=== PATIENT | male | born 1990 | race Caucasian/White ===

== ENCOUNTER 2017-02-14 04:49 | Emergency (ER) | payer OTHER ==
[~2017-02-14] VITALS: Ht 175.3 cm; Wt 84.5 kg
[2017-02-14 04:51] VITALS: BP 120/88; PULSE 89; RESP 16; O2SAT 98
[2017-02-14 05:18] LABS: BASOPHILS % (AUTO) 0.6 % (0-3); EOSINOPHILS % (AUTO) 1.4 % (0-5); MONOCYTES % (AUTO) 8.9 % (4-12); Mean Corpuscular Hemoglobin 29.3 pg (27.0-35.0); Mean Corpuscular Volume 84.5 fL (81-100); NEUTROPHILS % (AUTO) 67.1 % (40-74); Platelet Count 379 bil/L (150-400)
[2017-02-14] MEDS ORDERED: Ondansetron 2 mg/mL 2 mL Inj IVPUSH ONE (05:30)
[2017-02-14] MEDS ORDERED: Famotidine Inj 20 MG in IV Premix 1 EACH IV ONE (05:30)
--- NOTE | 2017-02-14 06:27 | ED.REPORT ---
HPI-Abd Pain M Under 40 Date of Service Feb 14, 2017 ED Provider: Eladio Mares MD Patient is an otherwise healthy 26 year old male who presents to the ED complaining of nausea and vomiting onset 6 days ago. His last episode of vomiting was 0230 this morning and he has been able to keep fluids down. Associated symptoms include diarrhea (every 2-3 hours) and sharp, cramping abdominal pain. He denies fever, chills, hematemesis, hematochezia, or any other symptoms. He has not taken medication for his symptoms. 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 He has a 12 year old sister at home and does not have contact with children in diapers. No known sick contacts besides the aforementioned. He does not have a PCP. Nursing Notes Stated Complaint: DIARRHEA/VOMITING Chief Complaint: Male Abdominal Pain Nursing Notes Reviewed: Yes Allergies: Uncoded Allergies: MEGHA (Allergy, Intermediate, 02/14/17) Scheduled Ondansetron ODT (Ondansetron ODT) 4 Mg Tab.rapdis 4 MG PO TID General Time Seen by MD: 05:29 Chief Complaint Vomiting moderate Hx Obtained From: Patient Arrived By: Walk-in Sudden in Onset?: Yes Onset Occurred: 6 days ago Symptom Duration: Since onset Past Medical History Past Medical History Denies Past Surgical History endoscopy, colonoscopy Smoking History Unknown if Ever Smoker Ambulatory Status Independent Review of Systems Constitutional: Denies: Chills, Fever GI: Reports: Diarrhea, Nausea, Vomiting, Denies: Hematemesis, Hematochezia Complete sys rev & neg: except as marked. Physical Exam Initial Vital Signs Vital Signs (First) Date Time Temp Pulse Resp B/P Pulse Ox O2 Delivery O2 Flow Rate FiO2 02/14/17 04:51 36.8 89 16 120/88 98 Room Air Initial VS: Reviewed, Vital signs normal Head / Eyes: Atraumatic, Normocephalic Neck: Full range of motion Skin: Warm, Dry Neurologic: Alert, Oriented, Nonfocal Psychiatric: Mood/affect normal, Behavior normal, Normal thought content General/Constitutional: Awake, Alert, No acute distress Respiratory / Chest: Breath sounds NL, Breath sounds = bilat, No respiratory distress Cardiovascular: Heart rate NL, Regular rhythm, Heart sounds NL Abdomen: Atraumatic, Soft, Non-tender Hyperactive bowel sounds Back: Atraumatic Interpretation & Diagnostics Lab Results Interpretation Result Diagram: 02/14/17 0505 02/14/17 0505 Test 02/14/17 05:05 02/14/17 06:20 White Blood Count 8.6th/mm3 (3.8-10.1) Red Blood Count 5.43mil/mm3 (4.40-5.80) Hemoglobin 15.9g/dL (13.8-17.2) Hematocrit 45.9% (41.0-50.0) Mean Corpuscular Volume 84.5fL (81-100) Mean Corpuscular Hemoglobin 29.3pg (27.0-35.0) Mean Corpuscular Hemoglobin Concent 34.6% (32.0-37.0) Red Cell Distribution Width 12.9% (12.3-15.4) Platelet Count 379bil/L (150-400) Neutrophils (%) (Auto) 67.1% (40-74) Lymphocytes (%) (Auto) 21.7% (14-46) Monocytes (%) (Auto) 8.9% (4-12) Eosinophils (%) (Auto) 1.4% (0-5) Basophils (%) (Auto) 0.6% (0-3) Sodium Level 137mEq/L (134-144) Potassium Level 3.7mEq/L (3.5-5.2) Chloride Level 100mEq/L (97-108) Carbon Dioxide Level 19mmol/L (18-29) Blood Urea Nitrogen 17mg/dL (6-20) Creatinine 1.05mg/dL (0.76-1.27) Estimat Glomerular Filtration Rate 90mL/min (>59) Glucose Level 101mg/dL (60-99) Calcium Level 9.4mg/dL (8.5-10.1) Magnesium Level 2.0mg/dL (1.6-2.6) Total Bilirubin 0.3mg/dL (0.0-1.2) Aspartate Amino Transf (AST/SGOT) 41U/L (0-50) Alanine Aminotransferase (ALT/SGPT) 54U/L (0-44) Alkaline Phosphatase 76U/L (25-150) Total Protein 8.7g/dL (6.4-8.4) Albumin 5.0g/dL (3.4-5.0) Lipase 19U/L (13-60) Hold Ann Top Tube Received (Received) Hold Urine Received (Received) Re-Eval/Medical Decision Re-Evaluation/Progress : Time of Eval: 07:48 )( Re-Eval Abdomen: Soft Re-Evaluation/Progress Note: Discussed plan for discharge. Patient understands and agrees with plan. All questions addressed at this time. Patient advised to not work until symptoms resolve. Counseled Regarding: Diagnosis, Need for follow-up, When/why to return to ED Patient Discharge & Departure Primary Impression: Nausea and vomiting Vomiting type: unspecified Vomiting Intractability: unspecified Qualified Code: R11.2 - Nausea with vomiting, unspecified Additional Impression: Diarrhea Diarrhea type: unspecified type Qualified Code: R19.7 - Diarrhea, unspecified Disposition: Home Discharge Condition All VS Reviewed: Yes Condition: Stable Patient Instructions: Gastroenteritis (ED) Additional Instructions: Emergency department evaluation today included Ambien, examination and labs. We have sent stool studies to further evaluate diarrhea, you will be called if any of these results require treatment. Get adequate fluids including some that contain electrolyte replacement. Ondansetron as needed for nausea and vomiting, pickup Imodium [id number] and use as directed for diarrhea. We expect that you will be better in the next couple of days. Call the [facility] for a follow-up appointment and to establish primary care. Return emergency department if symptoms are not improving within 3 days, for fevers, increased abdominal pain, uncontrolled vomiting or bloody diarrhea. Referrals: NOPCP (PCP) Scribe Attestation Portions of this note were transcribed by Mery Zamudio. I, Dr. Mares personally performed the history, physical exam and medical decision-making; I reviewed and confirmed the accuracy of the information in the transcribed note. Signed by: Mery Zamudio 02/14/17, 0754 Eladio Mares MD Feb 14, 2017 06:27 MERY ZAMUDIO Feb 14, 2017 07:49
[2017-02-14] MEDS ORDERED: ONDA4TAB12 PO (07:55)
[2017-02-14 08:20] VITALS: BP 109/71; PULSE 57; RESP 18; O2SAT 99
[2017-02-14 08:27] VITALS: BP 109/71; PULSE 57; RESP 18; O2SAT 99
== END 2017-02-14 08:28 | disposition home or self-care (01) ==
LOC: SED 04:49
DX: A08.11 Acute gastroenteropathy due to Norwalk agent (principal); Z88.8 Allergy status to other drugs, medicaments and biological substances
CPT/HCPCS: 36415; 80053; 83690; 83735; 85025; 87507; 96361; 96374; 96375; 99284; J1885; J2405; J3490